=== PATIENT | female | born 1970 | race Caucasian/White ===

== ENCOUNTER 2017-12-27 11:14 | Day surgery (SDC) | payer MEDICAID ==
[~2017-12-27] VITALS: Ht 149.9 cm; Wt 59.1 kg
[~2017-12-27 11:14] MED LIST: SODIUM CHLORIDE 0.9% 1,000 ML IV ONE
[2017-12-27] MEDS ORDERED: PROPOFOL 1% 20 ML VIAL IVP ONE (11:15)
== END 2017-12-27 14:55 | disposition home or self-care (01) ==
LOC: SURGERY 11:14
PROVIDERS: ATTEND Internal Medicine Gastroenterology
DX: K29.50 Unspecified chronic gastritis without bleeding (principal); E03.9 Hypothyroidism, unspecified; Z87.19 Personal history of other diseases of the digestive system; Z86.19 Personal history of other infectious and parasitic diseases; Z98.890 Other specified postprocedural states; Z79.899 Other long term (current) drug therapy
CPT/HCPCS: 43239; 84703; C1769; J2704; J7030